=== PATIENT | female | born 1990 | race Caucasian/White ===

== ENCOUNTER 2024-08-07 04:37 | Emergency (ER) | payer MEDICAID, SELFPAY ==
[2024-08-07 04:39] VITALS: BP 166/118; PULSE 98; RESP 18; TEMP 36.7; O2SAT 100; BMI 27.7
[2024-08-07 05:08] LABS: Bedside Glucose > 500 mg/dL (74-106)
--- NOTE | 2024-08-07 05:08 | EKG12_ITS ---
Test Reason : DYSRHYTHMIA Blood Pressure : / mmHG Vent. Rate : 093 BPM Atrial Rate : 093 BPM P-R Int : 128 ms QRS Dur : 094 ms QT Int : 390 ms P-R-T Axes : 062 024 045 degrees QTc Int : 484 ms Normal sinus rhythm Prolonged QT Abnormal ECG Confirmed by Rao Reyes ([id number]), video editor JA ADAM ([id number]) on 08/09/2024 10:02:34 AM Referred By: Confirmed By:Rao Reyes
[2024-08-07] MEDS: 0.9% Normal Saline (1000mL) 1,000 ML 999 ML IV (05:14)
[2024-08-07 05:19] LABS: Mucous, Urine 0 SEEN /hpf (<or=2+); White Blood Cells 0 SEEN /hpf (0-5)
--- NOTE | 2024-08-07 05:19 | ED.VIS.FEGU ---
HPI HPI - Female History of Present Illness Chief Complaint: Vag Bleeding Informant: patient and EMS Narrative Narrative: Patient is a 33-year-old female with type 1 insulin-dependent diabetes. She states that she is not from this area but was in town visiting a friend. She states she took her insulin when she had dinner which was around 8 PM. She states that she gets around with a moped and that for some reason the bike stopped running and she could not get it to start again. She states she tried pushing the bike but was having difficulty as she felt weak. She states that she had a spontaneous miscarriage roughly 2 weeks ago. She states that she had increased bleeding the other day but is now down to spotting. She states she is also had a history of heart attack with stent placement. She reports that because of her increased weakness she had concerned that maybe she had a cardiac event or had lost too much blood and therefore called EMS to bring her in for evaluation [facility] Medical History Myocardial infarct Bipolar 1 disorder DKA (diabetic ketoacidosis) Preeclampsia Depression Anxiety Home Medications ?Medication ?Instructions ?Recorded ?Last Taken ?Type aspirin 81 mg capsule 81 mg PO DAILY 08/07/24 Unknown History escitalopram oxalate 10 mg tablet 10 mg PO DAILY 08/07/24 Unknown History insulin aspart U-100 100 unit/mL 5 unit subcut TIDCM 08/07/24 Unknown History (3 mL) subcutaneous pen insulin glargine 100 unit/mL (3 9 unit subcut DAILY 08/07/24 Unknown History mL) subcutaneous pen insulin glargine 100 unit/mL (3 20 unit subcut QHS 08/07/24 Unknown History mL) subcutaneous pen levothyroxine 25 mcg capsule 25 mcg PO DAILY 08/07/24 Unknown History nifedipine 30 mg tablet,extended 30 mg PO DAILY 08/07/24 Unknown History release Allergy/AdvReac Type Severity Reaction Status Date / Time ibuprofen (From DayQuil Allergy Mild Hives Verified 08/07/24 04:49 Sinus Pressure/Pain) Penicillins Allergy Mild Vomiting Verified 08/07/24 04:49 pseudoephedrine (From Allergy Mild Hives Verified 08/07/24 04:49 DayQuil Sinus Pressure/Pain) Surgical History (Updated 08/07/24 @ 04:51 by Moni Downing Stented coronary artery Social History Smoking Status: Current every day smoker tobacco type: cigarettes ROS ROS ED Constitutional Constitutional ED: Denies chills or fever(s) Eyes Eyes: Denies change in vision ENT ENT ED: Denies rhinorrhea or sore throat Cardiovascular Cardiovascular: Denies chest pain, palpitations or racing heartbeat Respiratory/Chest Respiratory/Chest: Denies cough or dyspnea Gastrointestinal Gastrointestinal: Reports abdominal pain; Denies diarrhea, nausea or vomiting Genitourinary Genitourinary ED: Reports other Details: Positive vaginal bleeding ; Denies dysuria or urinary frequency Musculoskeletal Musculoskeletal: Denies myalgias Integumentary Denies rash Neurologic Neurologic: Reports weakness; Denies headache(s) or paresthesias Hematologic/Lymphatic Hematologic/Lymphatic: Denies easy bleeding or easy bruising EXAM Physical Exam Const Vital Signs: 08/07/24 04:39 Temperature 98.1 F Temperature Source Oral Pulse Rate 98 Respiratory Rate 18 Blood Pressure 166/118 H Blood Pressure Mean 134 Pulse Ox 100 Oxygen Delivery Method Room Air Positive well nourished and well developed General Appearance ED: well developed; Negative for pallor HEENT Reports moist mucous membranes HEENT Narrative: No tongue or lip swelling no oral lesions no airway edema or compromise No signs of infection noted in the posterior pharynx Eyes PERRL and EOMs intact bilaterally General Eye ED: Negative for pale conjunctiva or scleral icterus Neck supple Neck Narrative: No nuchal rigidity or meningeal signs noted Chest Wall palpation of chest normal Resp normal respiratory effort and clear to auscultation bilaterally Cardio regular rate and regular rhythm GI soft to palpation, non-distended and no masses GI Narrative: Soft and nondistended with normal active bowel sounds. There is pain on palpation in the suprapubic region without voluntary guarding or rigidity. No pulsatile mass or fluid wave. No organomegaly noted Auscultation: normoactive bowel sounds Palpation: soft Extremity normal to inspection and full ROM Extremity Narrative: No asymmetric edema no pitting edema negative Homans' sign bilaterally Neuro oriented x3, CN's II-XII intact bilaterally and no sensory deficits noted Sensorium / Orientation: alert Motor Exam: strength 5/5 throughout Psych mental status grossly normal Skin no rashes or lesions noted General Skin Exam: Negative for jaundice or pallor MDM MDM MDM Narrative Medical decision making narrative: Patient arrived to the ER hypertensive but otherwise with stable vital. She reported feeling weak and based on her history of type 1 diabetes and coronary artery disease she had concern for potential coronary event or infectious process or because of her recent spontaneous miscarriage she had concern for potential acute blood loss anemia. Basic labs were obtained and patient does not have leukocytosis or left shift. H&H is stable at 13 and 40 going against acute blood loss anemia. Patient's creatinine is slightly elevated but she states this is chronic in nature and there are no clinically significant electrolyte abnormality. There is also concern potential DKA or HHS based on her type 1 diabetes and hyperglycemia. The patient CO2 is 26 her anion gap is normal and her serum acetone is negative going against DKA and her calculated serum osmolality is 301 going against HHS. The patient's value was 1800 approximately but she states that just a few weeks ago was 14,000 which indicates that is downtrending as it should with spontaneous miscarriage. I discussed with patient obtaining a transvaginal ultrasound to make sure there are no retained products of conception as she has suprapubic pain and reported increased vaginal bleeding the other day. The patient states that she is tired and does not want to undergo an ultrasound at this time. I discussed with patient also continuing IV fluid hydration and subcutaneous insulin based on her hyperglycemia. The patient states she is tired of being in the hospital and that she has her own insulin and does not want to receive any further care. I informed her that there is still potential that she has retained products of conception but until a ultrasound is obtained I cannot confirm or reject this hypothesis. She states that her pain is improved from the previous day and her bleeding has changed from a large amount of just spotting and she has little concern that there is any retained product. She states that she now knows that this is not cardiac in nature and she does not need a blood transfusion and that she is not in DKA causing her weakness she does not want to be in the hospital any further and wishes to be discharged. The patient is competent to make this decision and understands the risks of doing so by this time she is hemodynamically stable and workup does not reveal any signs of DKA or HHS or acute infectious process or need for blood transfusion therefore should be discharged as requested Of note the patient's urine sample did show +3 bacteria but there are no white blood cells present and she is nitrite negative and she is not having dysuria therefore I feel this is normal colonization and do not feel the need for antibiotics History & Record Review Discussion w/independent historian: Patient Lab Data Attestation: I reviewed the patient's lab results. Labs: Laboratory Results - last 24 hr 08/07/24 08/07/24 08/07/24 04:49 04:57 05:00 WBC 5.9 RBC 4.35 Hgb 13.1 Hct 40.3 MCV 92.6 MCH 30.1 MCHC 32.5 RDW Std Deviation 44.1 H RDW Coeff of Jonny 12.9 Plt Count 299 MPV 10.0 Immature Gran % (Auto) 0.300 Neut % (Auto) 52.1 Lymph % (Auto) 35.4 Bowman % (Auto) 9.9 Eos % (Auto) 0.8 Baso % (Auto) 1.5 H Absolute Neuts (auto) 3.1 Absolute Lymphs (auto) 2.10 Nucleated RBC % 0 Sodium 130 L Potassium 3.6 Chloride 94 L Carbon Dioxide 26.0 Anion Gap 10 BUN 19 H Creatinine 1.43 H Estim Creat Clear Calc 54.38 Est GFR (MDRD) Af Amer 54 L Est GFR (MDRD) Non-Af 44 L BUN/Creatinine Ratio 13.3 Glucose 614 H* Calcium 9.4 Total Bilirubin 0.30 Direct Bilirubin 0.09 AST 12 L ALT 14 Alkaline Phosphatase 107 Total Protein 7.5 Albumin 3.6 Globulin 3.9 HCG, Quant 1842 H Urine Color Yellow Urine Clarity Clear Urine pH 6.0 Ur Specific Coward 1.010 Urine Protein 100 H Urine Glucose (UA) 1000 H Urine Ketones Negative Urine Occult Blood 250 H Urine Nitrite Negative Urine Bilirubin Negative Urine Urobilinogen Normal Ur Leukocyte Esterase Negative Urine RBC 0-5 SEEN Urine WBC 0 SEEN Ur Squamous Epith Cells 0-5 SEEN Urine Bacteria 3+ Urine Mucus 0 SEEN Acetone Level NEGATIVE POC Glucose > 500 H* Discharge Plan Triage Chief Complaint: Vag Bleeding ED Provider: Sandro Marie Dx/Rx/DC Orders Clinical Impression: Hyperglycemia, Type 1 diabetes, Spontaneous miscarriage, Renal insufficiency, CAD (coronary artery disease) Instructions: Diabetes: Caring for Your Body, ED Miscarriage Spontaneous Prescriptions: No Action insulin aspart U-100 100 unit/mL (3 mL) insulin pen 5 unit subcut TIDCM insulin glargine 100 unit/mL (3 mL) insulin pen 20 unit subcut QHS insulin glargine 100 unit/mL (3 mL) insulin pen 9 unit subcut DAILY nifedipine 30 mg tablet extended release 30 mg PO DAILY aspirin 81 mg capsule 81 mg PO DAILY escitalopram oxalate 10 mg tablet 10 mg PO DAILY levothyroxine 25 mcg capsule 25 mcg PO DAILY Patient Comments: pt. has not filled the Rx yet Primary Care Provider: Rao Herron Referrals: Ej Trimble MD [Med Staff - Active Staff] - Rao Herron MD [Primary Care Provider] - Activity Restrictions/Additional Instructions: Please continue your insulin regimen as directed by your doctor. Also please follow-up with [facility] regarding your recent spontaneous miscarriage and if you have any further concerns or worsening symptoms please return to the hospital for repeat evaluation Print Language: Thai Disposition Disposition: Home, Self Care
[2024-08-07 05:20] LABS: Absolute Neutrophil Count 3.1 X10^3/uL (2.0-7.7); Basophil# 0.09 X10^3/uL; Basophil% 1.5 % (0-1); Eosinophil# 0.05 X10^3/uL; Eosinophils% 0.8 % (0-5); Hematocrit 40.3 % (37-47); Hemoglobin 13.1 g/dL (12.0-15.0); Lymphocyte % 35.4 % (19-41); Mean Corp Hgb Conc 32.5 g/dL (32-36); Mean Corpuscular Hgb 30.1 pg (27.0-32.0); Mean Corpuscular Volume 92.6 fL (81-99); Monocyte# 0.59 X10^3/uL; Monocyte% 9.9 % (0-10); NRBC Flagged by Analyzer 0 % (0-5); Neutrophil # 3.08 X10^3/uL (2.7-7.7); Neutrophil % 52.1 % (47-70); Platelet Count 299 K/mm3 (150-450); RBC Distribution Width CV 12.9 % (11.6-14.6); RBC Distribution Width SD 44.1 fl (35.1-43.9); Red Blood Count 4.35 M/mm3 (4.2-5.4); White Blood Count 5.9 K/mm3 (4.4-11.0)
[2024-08-07 05:21] LABS: Color, Urine Yellow (Yellow); Glucose, Dipstick 1000 mg/dl (Normal); Ketone-Dipstick Negative (Negative); Leukocyte Esterase-Dipstick Negative /ul (Negative); Nitrite-Dipstick Negative (Negative); Occult Blood-Urine 250 /ul (Negative); Protein-Dipstick 100 mg/dl (Negative); Urine Bilirubin Dipstick Negative (Negative); Urine Clarity Clear (Clear); Urine Urobilinogen Normal (Normal)
[2024-08-07 05:39] LABS: Bacteria 3+ /hpf (None Seen); Red Blood Cells-Urine 0-5 SEEN /hpf (0-5); Squamous Epithelial Cells - UA 0-5 SEEN /hpf (5-10)
[2024-08-07 05:44] LABS: AST(SGOT) 12 U/L (15-37); Alanine Aminotransfer ALT/SGPT 14 U/L (13-56); Albumin, Serum 3.6 g/dL (3.2-5.0); Alkaline Phosphatase 107 U/L (45-117); Anion Gap 10 (5-15); BUN 19 mg/dL (7-18); BUN/Creat Ratio 13.3 RATIO (10-20); Bilirubin, Direct 0.09 mg/dL (0.00-0.30); Calcium,Total 9.4 mg/dL (8.5-10.1); Chloride 94 mmol/L (98-107); Creatinine, Serum 1.43 mg/dL (0.55-1.02); EST Glomerular Filtration Rate 44 mL/min (>60); Est Glom Filt Rate - Afr Amer 54 mL/min (>60); Estimated Creatinine Clearance 54.38 ml/min; Globulin 3.9 g/dL (2.2-4.2); Glucose 614 mg/dL (74-106); Potassium 3.6 mmol/L (3.5-5.1); Protein, Total 7.5 g/dL (6.4-8.2); Sodium Level 130 mmol/L (136-145)
[2024-08-07 06:10] LABS: hCG Titer Quant., Serum 1842 mIU/mL (1-3)
--- NOTE | 2024-08-07 06:38 | ED.RN ---
This RN went into the room to follow MD orders. This RN noticed that the patient's fluids were not dripping in the chamber. This RN explained to the patient that I was going to redress the IV site in order to secure it in place. The pt. expressed concern of how it came out, this RN stated that it might have gotten tugged while she was moving the bed around the room and assured the pt. that the IV was still flowing now that it was repositioned. This RN explained that I was going to simply change the dressing on the IV site in order to ensure this would not happen again. The pt. stated it's not my fault it came out and I want it out. This RN explained to the patient the necessity of IV treatment with her blood sugar being elevated and the necessity of the IV. The pt. stated I don't care, I'm tired, and I want to get out of here, and I want this IV out now. This RN notified the MD.
== END 2024-08-07 06:43 | disposition home or self-care (01) ==
PROVIDERS: Emergency Provider Emergency Medicine; PCP Family Medicine; Visit Provider Emergency Medicine
DX: O03.9 Complete or unspecified spontaneous abortion without complication (principal); F31.9 Bipolar disorder, unspecified; E10.65 Type 1 diabetes mellitus with hyperglycemia; Z79.4 Long term (current) use of insulin; I25.10 Atherosclerotic heart disease of native coronary artery without angina pectoris; N28.9 Disorder of kidney and ureter, unspecified; N93.9 Abnormal uterine and vaginal bleeding, unspecified; F17.210 Nicotine dependence, cigarettes, uncomplicated; Z79.82 Long term (current) use of aspirin; Z79.890 Hormone replacement therapy; Z79.899 Other long term (current) drug therapy; I25.2 Old myocardial infarction; Z95.5 Presence of coronary angioplasty implant and graft
CPT/HCPCS: 80048; 80076; 81001; 82009; 82962; 84702; 85025; 93005; 96360; 99283; J7030; A4216